=== PATIENT | male | born 1980 | race Caucasian/White ===

== ENCOUNTER 2024-06-06 21:16 | Inpatient (IN) | payer OTHER, SELFPAY ==
[2024-06-06 21:20] VITALS: BP 135/72; PULSE 87; RESP 17; TEMP 36.9; O2SAT 97; BMI 18.2
--- NOTE | 2024-06-06 21:46 | PC.NURSE ---
Patient came in with suboxone script bottle with 30 films in bottle.
--- NOTE | 2024-06-06 22:14 | ED_ITS ---
HPI - Psych General Chief Complaint: Psychiatric Symptoms Stated Complaint: SI Time Seen by Provider: 06/06/24 21:30 Source: patient and EMS Mode of arrival: EMS Limitations: no limitations History of Present Illness HPI Narrative: Patient is a 44-year-old male who presents to the emergency department via EMS for evaluation. Admits to difficulty sleeping recently, depression, SI. States that in April 2024 he broke up with his girlfriend. He was living in [facility] he has since moved back to the local area. He has relapsed with cane uses a couple of days ago after 10 years of sobriety. He expresses suicidal ideations with a plan to overdose on cocaine. He expresses discussing that surrounding his father who committed suicide approximately 10 years ago and ?I think my moving suicide as well?. He states he has taken antidepressants in the past but they ?make me feel like a robot? and does not find them particularly helpful. He trialed a course of cephalexin October of 2023 without much improvement. Has a primary care doctor in [place] but not one locally. He follows with [facility] where he receives monthly dosing, this too is in [place], he advised them he would like to establish care with a therapist but he never received follow-up. Related Data Home Medications ?Medication ?Instructions ?Recorded ?Confirmed buprenorphine 8 mg-naloxone 2 mg 1 film buccal TID 06/06/24 06/06/24 sublingual film (Suboxone) Allergies Allergy/AdvReac Type Severity Reaction Status Date / Time No Known Allergies Allergy Verified 06/06/24 21:21 Review of Systems 2 Review of Systems: Yes all other systems are reviewed and are negative PMFSH Past Medical History Attestation statement: The following information was validated with the patient. Source: old records reviewed Social History Social History Smoked in Last 30 Days: Yes Use of substances other than those prescribed or required for medical reasons: Yes Substance Use Type: Crack/Cocaine Advance Directives: No Advance Directives Information Provided: No Do you have a plan to hurt others: No Plan Physical Exam 2 Vital Signs: Vital Signs: Last Vital Signs Temp 98.6 F 06/06/24 23:56 Pulse 85 06/06/24 23:56 Resp 17 06/06/24 23:56 BP 126/83 06/06/24 23:56 Pulse Ox 96 06/06/24 23:56 O2 Del Method Room Air 06/06/24 23:56 BMI result Body Mass Index 18.2 Appearance: Alert.?Oriented to person, place and time. No acute distress.?Normal affect. Eyes: Pupils equal, round and reactive to light.? ENT: Pharynx normal.?? Neck: Normal inspection.? Neck supple.?? CVS: Heart sounds normal. Normal heart rate and rhythm.? Pulses normal.?? Respiratory: No respiratory distress.? Lung sounds clear to auscultation bilaterally?? Abdomen: Soft and non-tender. Normoactive bowel sounds. ?? Skin: Skin warm and dry.? Normal skin color.? Extremities: No lower extremity edema.? Neuro: Moves all extremities spontaneously. Sensation intact bilaterally. CN II- XII intact. No focal neuro deficits. Ambulates with normal steady gait. Medical Decision Making Medical Decision Making MDM Narrative: Patient is a 44-year-old male with history of substance use disorder, depression presenting to the emergency department with insomnia depression and suicidal ideations with a plan to overdose on cocaine as per HPI. He is calm and cooperative with myself. He had a friend stopped by who drop off his Suboxone he expresses concern about him decompensating surrounding this break-up, worsening depression insomnia. He acknowledges that his depression is problematic for him, in his currently admitting SI. Will obtain serum labs for medical clearance and refer to care team for safe disposition planning and determination as to whether inpatient psychiatric level of care is warranted at this time Differential Diagnosis Differential Diagnoses: The differential diagnosis associated with the presentation includes (Narrative above) Admission/Observation Consideration of admission/observation: Escalation of care including admission/observation considered Patient is being observed in the Emergency Department for depression and anxiety. Observation time was started at 22:25 on 06/06/2024..?The patient is currently stable and non-toxic appearing. Observation is being initiated in the Emergency Department to allow time to help differentiate if the patient's depression and anxiety is due to Substance Induced Mood Disorder and Anxiety versus Major Depressive Disorder, Bipolar [place], Bipolar Depression, and Schizophrenia. The patient will receive frequent psychiatric assessments from the provider as well as from nursing staff. The patient will also be monitored for the need of PRN agitation medications such as Haldol, Ativan, and Benadryl. He has been evaluated by the care team and disposition plan has been put in place for inpatient level of care for Psychiatric Services, placed on a section 12 Lab Data 06/06/24 22:10 06/06/24 22:10 Labs: Lab Results 06/06/24 06/06/24 Range/Units 22:10 22:11 WBC 8.4 (4.8-10.8) X10*3/uL RBC 4.90 (4.60-5.80) X10*6/uL Hgb 14.4 (14.0-18.0) g/dl Hct 40.6 L (42.0-52.0) % MCV 82.9 (80.0-98.0) fL MCH 29.4 (27.0-33.0) pg MCHC 35.5 (31.0-36.0) g/dl RDW 12.9 (11.0-16.0) % Plt Count 208 (160-400) X10*3/uL MPV 11.3 (9.4-12.4) fL Immature Gran % (Auto) 0.2 (0.0-0.4) % Neut % (Auto) 51.5 (45-73) % Lymph % (Auto) 31.8 (20-40) % [place] % (Auto) 11.2 H (2-11) % Eos % (Auto) 4.6 H (0-4) % Baso % (Auto) 0.7 (0-2) % Lymph # (Auto) 2.7 (1.2-4.9) X10*3/uL [place] # (Auto) 0.9 (0.1-1.2) X10*3/uL Eos # (Auto) 0.4 (0.0-0.4) X10*3/uL Baso # (Auto) 0.1 (0.0-0.2) X10*3/uL Abs Immat Gran (auto) 0.02 (0.00-0.03) X10*3/uL Absolute Neuts (auto) 4.3 (2.0-8.3) x10*3/uL Absolute Nucleated RBC 0.000 (0.0-0.012) X10*3/uL Nucleated RBC % (auto) 0.0 (0.0-0.2) /100WBC Sodium 142 (135-145) mmol/L Potassium 3.6 (3.3-5.1) mmol/L Chloride 102 (96-108) mmol/L Carbon Dioxide 28 (22-29) mmol/L Anion Gap 16 (12-20) BUN 20 H (9-16) mg/dL Creatinine 0.84 (0.5-1.4) mg/dL Estim Creat Clear Calc 93.0 Estimated GFR > 60 Random Glucose 120 H (60-115) mg/dL Calcium 9.7 (8.4-10.2) mg/dL Magnesium 1.9 (1.6-2.6) mg/dL Total Bilirubin 0.3 (0.0-1.0) mg/dL AST 29 (5-37) U/L ALT 23 (0-40) U/L Alkaline Phosphatase 71 (39-117) U/L Total Protein 6.8 (6.5-8.0) g/dL Albumin 4.2 (3.5-5.0) g/dL Urine Color Dark Yellow Urine Appearance Clear Urine pH 6.0 (5.0-9.0) Ur Specific [place] >= 1.030 H (1.005-1.025) Urine Protein 30 (1+) H (Neg-Trace) mg/dL Urine Glucose (UA) Negative (Negative) mg/dL Urine Ketones Trace (Negative) mg/dL Urine Blood Negative (Negative) Urine Nitrite Negative (Negative) Ur Leukocyte Esterase Trace H (Negative) Urine RBC 0-2 (0-2) /HPF Urine WBC 0-5 (0-5) /HPF Ur Squamous Epith Cells 0-2 (0-2) /HPF Urine Bacteria None Seen (None Seen) Hyaline Casts 0-2 (0-2) /LPF Salicylates < 5.0 L (15-30) mg/dL Urine Opiates Screen Not Detected (Not Detect) Ur Buprenorphine Scrn Positive H (Not Detect) ng/mL Ur Oxycodone Screen Not Detected (Not Detect) ng/mL Urine Methadone Screen Not Detected (Not Detect) ng/mL Urine Fentanyl Screen Not Detected (Not Detect) Acetaminophen < 3 (<30) mcg/mL Ur Barbiturates Screen Not Detected (Not Detect) Ur Phencyclidine Scrn Not Detected (Not Detect) Ur Amphetamines Screen POSITIVE H (Not Detect) U Benzodiazepines Scrn Not Detected (Not Detect) Urine Cocaine Screen POSITIVE H (Not Detect) U Marijuana (THC) Screen POSITIVE H (Not Detect) Ethyl Alcohol < 10 mg/dL Discharge Plan Discharge Clinical Impression: Suicidal ideation, Depression Patient Disposition: Still a Patient Prescriptions: No Action buprenorphine-naloxone [Suboxone] 8-2 mg Film 1 film BUCCAL TID Patient Comments: Pt up to date prescription bottle brought in Interventions: [place]-Suicide Risk Severity Scale Last Done: 06/06/24 23:59 Print Language: Mexican
[2024-06-06 22:19] LABS: MANUAL DIFF FLAG NO
[2024-06-06 22:21] LABS: Basophils Absolute Auto 0.1 X10*3/uL (0.0-0.2); Basophils Percent Auto 0.7 % (0-2); Eosinophils Absolute Auto 0.4 X10*3/uL (0.0-0.4); Eosinophils Percent Auto 4.6 % (0-4); Hematocrit 40.6 % (42.0-52.0); Hemoglobin 14.4 g/dl (14.0-18.0); Imm Gran Abs Auto 0.02 X10*3/uL (0.00-0.03); Imm Gran Pct Auto 0.2 % (0.0-0.4); Lymphocytes Absolute Auto 2.7 X10*3/uL (1.2-4.9); Lymphocytes Percent Auto 31.8 % (20-40); Mean Corpuscular HGB Conc 35.5 g/dl (31.0-36.0); Mean Corpuscular Hemoglobin 29.4 pg (27.0-33.0); Mean Corpuscular Volume 82.9 fL (80.0-98.0); Mean Platelet Volume 11.3 fL (9.4-12.4); Monocytes Absolute Auto 0.9 X10*3/uL (0.1-1.2); Monocytes Percent Auto 11.2 % (2-11); Neutrophils Absolute Auto 4.3 x10*3/uL (2.0-8.3); Neutrophils Percent Auto 51.5 % (45-73); Platelet Count 208 X10*3/uL (160-400); Red Cell Distribution Width 12.9 % (11.0-16.0); White Blood Count 8.4 X10*3/uL (4.8-10.8)
[2024-06-06 22:24] LABS: Appearance Urine Clear; Color Urine Dark Yellow; Glucose Urine UA Negative (Negative); Leukocyte Esterase Urine Trace (Negative); Nitrite Urine Negative (Negative); Specific Gravity - Urine >= 1.030 (1.005-1.025); UMIC TRIGGER UACC YES; Urine Blood Negative (Negative); Urine Ketones Trace mg/dL (Negative); Urine Protein 30 (1+) mg/dL (Neg-Trace)
[2024-06-06 22:34] LABS: Ethanol < 10 mg/dL
[2024-06-06 22:35] LABS: Alanine Aminotransferase 23 U/L (0-40); Albumin Level 4.2 g/dL (3.5-5.0); Alkaline Phosphatase 71 U/L (39-117); Anion Gap 16 (12-20); Aspartate Amino Transferase 29 U/L (5-37); Bilirubin Total 0.3 mg/dL (0.0-1.0); Blood Urea Nitrogen 20 mg/dL (9-16); Calcium 9.7 mg/dL (8.4-10.2); Carbon Dioxide 28 mmol/L (22-29); Chloride 102 mmol/L (96-108); Estimated Glomerular Filt Rate > 60; Glucose Random 120 mg/dL (60-115); Magnesium 1.9 mg/dL (1.6-2.6); Potassium 3.6 mmol/L (3.3-5.1); Sodium 142 mmol/L (135-145); Total Protein 6.8 g/dL (6.5-8.0)
[2024-06-06 22:35] LABS: Acetaminophen LAB < 3 mcg/mL (<30); Salicylate < 5.0 mg/dL (15-30)
[2024-06-06 22:38] LABS: Amphetamine Screen Urine POSITIVE (Not Detect); Barbiturates, Urine Not Detected (Not Detect); Benzodiazepines Screen Urine Not Detected (Not Detect); Buprenorphine Scr Positive (Not Detect); Cannabinoid Screen Urine POSITIVE (Not Detect); Cocaine Screen Urine POSITIVE (Not Detect); Fentanyl, urine Not Detected (Not Detect); Methadone Screen, Urine Not Detected (Not Detect); Opiate Screen Urine Not Detected (Not Detect); Oxycodone Screen Urine Not Detected (Not Detect); Phencyclidine Screen Urine Not Detected (Not Detect)
[2024-06-06 22:46] LABS: Bacteria Urine None Seen (None Seen); Hyaline Casts Urine 0-2 /LPF (0-2); RBC Urine 0-2 /HPF (0-2); Squamous Epithelial Cell Urine 0-2 /HPF (0-2); WBC Urine 0-5 /HPF (0-5)
--- NOTE | 2024-06-06 23:39 | PC.NURSE ---
pt calm and cooperative at this time. Speaking with care team in [facility] at this time
[2024-06-06 23:56] VITALS: BP 126/83; PULSE 85; RESP 17; TEMP 37; O2SAT 96
--- NOTE | 2024-06-07 | ECG_ITS ---
Test Reason : CHECK PROLONG QT Blood Pressure : / mmHG Vent. Rate : 054 BPM Atrial Rate : 054 BPM P-R Int : 144 ms QRS Dur : 094 ms QT Int : 440 ms P-R-T Axes : 066 060 068 degrees QTc Int : 417 ms Sinus bradycardia Otherwise normal ECG No previous ECGs available Referred By: Generic ED Physician Electronically Signed By:DARION LARRY MD
--- NOTE | 2024-06-07 07:08 | PC.NURSE ---
Assumed care of patient at 0645. Patient is currently resting quietly in their bed. No signs of distress observed, breathing is even and unlabored.
--- NOTE | 2024-06-07 07:09 | PC.NURSE ---
Assumed care of patient at 0645. Patient is currently resting quietly in their bed. No signs of distress observed, breathing is even and unlabored.
[2024-06-07] MEDS: Buprenorphine/Naloxone 8/2 mg FILM 1 FILM BUCCAL ×2 (11:00→14:53)
[2024-06-07] MEDS: Nicotine 21 MG PATCH.TD24 TRANSDERMA (14:51)
[2024-06-07] MEDS: LORazepam 1 MG TABLET 2 MG PO (14:51)
[2024-06-07] MEDS: OLANZapine ODT 10 MG TAB.RAPDIS TRANSLINGU (14:51)
--- NOTE | 2024-06-07 15:44 | P.CNPS_ITS ---
History of Present Illness Date of Service: 06/07/2024 Chief Complaint: SI Reason for Consult: overdose Requesting physician: Erica Serra Discussed with referring provider: Yes Sources of Information: patient interviewed and chart reviewed HPI Narrative: pt self presented to Ed after suicide attempt by IV cocaine use. Pt says he had not slept in 4 days when he made suicide attempt; he says he meant to kill himself. He states he had been abstinent for 10 yrs prior to this. He reports many months of mood disorder, anger, depression, not sleeping. he reports typically sleeping only 2 hours a day; he had recent break up with Gf that he initiated due to his depression; says he was yelling all the time and losing his temer. DCF got involved because she has a 7 yo son. He reports depression symptoms with poor energy, weight; loss, poor concentration not thinking straight. pt reports the suicide attempt was impulsive. Past Psychiatric History: reports no Inpt psych but in and out of correction since 16 yo . most recnt was out of correction x 5 yrs , pt has been tried on prozac, wellbutrin, zoloft, effexor and he says never helped. Medical Evaluation Reviewed: Yes Diagnostics Vital Signs (24Hr): Vital Signs - 24 hr 06/06/24 21:20 06/06/24 23:56 Temperature 98.4 F 98.6 F Pulse Rate 87 85 Respiratory Rate 17 17 Blood Pressure 135/72 126/83 Pulse Oximetry 97 96 Oxygen Delivery Method Room Air Room Air BMI result Body Mass Index 18.2 Labs 06/06/24 22:10 06/06/24 22:10 Labs: Laboratory Results - last 48 hr 06/06/24 06/06/24 22:10 22:11 WBC 8.4 RBC 4.90 Hgb 14.4 Hct 40.6 L MCV 82.9 MCH 29.4 MCHC 35.5 RDW 12.9 Plt Count 208 MPV 11.3 Immature Gran % (Auto) 0.2 Neut % (Auto) 51.5 Lymph % (Auto) 31.8 [place] % (Auto) 11.2 H Eos % (Auto) 4.6 H Baso % (Auto) 0.7 Lymph # (Auto) 2.7 [place] # (Auto) 0.9 Eos # (Auto) 0.4 Baso # (Auto) 0.1 Abs Immat Gran (auto) 0.02 Absolute Neuts (auto) 4.3 Absolute Nucleated RBC 0.000 Nucleated RBC % (auto) 0.0 Sodium 142 Potassium 3.6 Chloride 102 Carbon Dioxide 28 Anion Gap 16 BUN 20 H Creatinine 0.84 Estim Creat Clear Calc 93.0 Estimated GFR > 60 Random Glucose 120 H Calcium 9.7 Magnesium 1.9 Total Bilirubin 0.3 AST 29 ALT 23 Alkaline Phosphatase 71 Total Protein 6.8 Albumin 4.2 Urine Color Dark Yellow Urine Appearance Clear Urine pH 6.0 Ur Specific [place] >= 1.030 H Urine Protein 30 (1+) H Urine Glucose (UA) Negative Urine Ketones Trace Urine Blood Negative Urine Nitrite Negative Ur Leukocyte Esterase Trace H Urine RBC 0-2 Urine WBC 0-5 Ur Squamous Epith Cells 0-2 Urine Bacteria None Seen Hyaline Casts 0-2 Salicylates < 5.0 L Urine Opiates Screen Not Detected Ur Buprenorphine Scrn Positive H Ur Oxycodone Screen Not Detected Urine Methadone Screen Not Detected Urine Fentanyl Screen Not Detected Acetaminophen < 3 Ur Barbiturates Screen Not Detected Ur Phencyclidine Scrn Not Detected Ur Amphetamines Screen POSITIVE H U Benzodiazepines Scrn Not Detected Urine Cocaine Screen POSITIVE H U Marijuana (THC) Screen POSITIVE H Ethyl Alcohol < 10 Mental Status Exam Mental Status Exam Narrative: thin, rocking, unshaven Patient Appearance: Disheveled and Unkempt Patient Orientation: Person, Place, Time and Situation Level of Consciousness: Awake Patient Behavior: Appropriate Mood Description: Anxious and Sad Affect Description: Anxious, Flat and Sad Patient Cognition Impaired: No Ability to Follow Directions: Fair Speech Pattern: Clear Memory Description: Intact Hallucinations: None Delusions: Not Present Thought Process: Rumination Thought Content: positive for Ola, positive for Perseveration and positive for Loose Associations Abnormal Motor Activity Signs and Symptoms: Restlessness Judgement: Poor Medications Medications Current Medications Buprenorphine/Naloxone (Buprenorphine/Naloxone 8/2 Mg Film) 1 film BUCCAL TID MEGAN Last Admin: 06/07/24 14:53 Dose: 1 film Allergies Allergies Allergy/AdvReac Type Severity Reaction Status Date / Time No Known Allergies Allergy Verified 06/06/24 21:21 Assessment & Plan Assessment & Plan (1) Depression: Qualifiers: Depression Type: major depressive disorder Active/Remission status: c urrently active Major depression episode severity: severe Psychotic features: without psychotic features Status: Acute Code(s): F32.A - Depression, unspecified (2) Suicidal ideation: Status: Acute Code(s): R45.851 - Suicidal ideations Plan rule out BIpolar disorder recommend inpatient for severe depression, severe sleep disruption and recent intentional impulsive suicide attempt. Pt agreeable to this plan If changes his mind recommend section 12 Total time managing care of this patient today ____ minutes.
[2024-06-07 20:45] VITALS: BP 107/60; PULSE 54; RESP 16; TEMP 36.8; O2SAT 98
[2024-06-08] MEDS: Buprenorphine/Naloxone 8/2 mg FILM 1 FILM BUCCAL ×4 (01:32→20:58)
--- NOTE | 2024-06-08 01:33 | PC.NURSE ---
Pt woke up asking when he would receive last dose of suboxone. Per previous RN pt was tami welchypalicia and was sleeping so he was not given last dose. T/w spoke with and verbal order ok to give dose at this time. Suboxone administered to patient.
[2024-06-08 12:50] VITALS: BP 117/76; PULSE 94; RESP 18; TEMP 36.8; O2SAT 95
[2024-06-08 13:30] VITALS: BMI 18.5
[2024-06-08] MEDS: Nicotine 21 MG PATCH.TD24 TRANSDERMA (14:47)
[2024-06-08] MEDS: hydrOXYzine HCL 25 MG TABLET PO (14:47)
[2024-06-08] MEDS: Nicotine Polacrilex Lozenge 4 MG LOZENGE BUCCAL (15:21)
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
[2024-06-08 19:50] VITALS: BP 131/77; PULSE 76; RESP 18; TEMP 36.3; O2SAT 99
[2024-06-09] MEDS: Buprenorphine/Naloxone 8/2 mg FILM 1 FILM BUCCAL ×3 (08:32→21:33)
[2024-06-09] MEDS: Nicotine 21 MG PATCH.TD24 TRANSDERMA (08:32)
[2024-06-09 09:10] VITALS: BP 117/69; PULSE 70; RESP 16; TEMP 36.4; O2SAT 99
[2024-06-09 09:12] LABS: Alanine Aminotransferase 26 U/L (0-40); Albumin Level 4.1 g/dL (3.5-5.0); Alkaline Phosphatase 71 U/L (39-117); Anion Gap 11 (12-20); Aspartate Amino Transferase 25 U/L (5-37); Bilirubin Total 0.2 mg/dL (0.0-1.0); Blood Urea Nitrogen 23 mg/dL (9-16); Calcium 9.6 mg/dL (8.4-10.2); Carbon Dioxide 27 mmol/L (22-29); Chloride 105 mmol/L (96-108); Cholesterol 155 mg/dL (<200); Creatinine Clr Calc Pharmacy 99.4; Estimated Glomerular Filt Rate > 60; Glucose Fasting 96 mg/dL (60-99); HDL Cholesterol 56 mg/dL (>40); LDL Cholesterol Calculated 69 mg/dL (<100); Magnesium 1.9 mg/dL (1.6-2.6); Potassium 4.5 mmol/L (3.3-5.1); Sodium 138 mmol/L (135-145); Total Protein 6.8 g/dL (6.5-8.0); Triglycerides 154 mg/dL (<150)
[2024-06-09 09:14] LABS: Estimated Average Glucose 108 mg/dL; Hemoglobin A1c % 5.4 % (<6.0)
[2024-06-09] MEDS: Fluticasone/Vilanterol 100/25 BLST.W.DEV 1 PUFF INHALE (09:16)
[2024-06-09 10:09] LABS: Free T4 (Free Thyroxine) 0.93 ng/dL (0.71-1.85); Thyroid Stimulating Hormone 0.48 uIU/mL (0.32-4.0)
[2024-06-09 10:20] LABS: Folate 4.8 ng/mL (> or = 4.0); Vitamin B12 300 pg/mL (200-900)
[2024-06-09] MEDS: Nicotine Polacrilex Lozenge 4 MG LOZENGE BUCCAL ×4 (12:16→21:45)
[2024-06-09] MEDS: Acetaminophen 325 MG TABLET 650 MG PO ×2 (12:17→18:30)
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
[2024-06-09 20:00] VITALS: BP 126/87; PULSE 79; RESP 16; TEMP 36.7; O2SAT 98
[2024-06-09] MEDS: hydrOXYzine HCL 25 MG TABLET PO (21:40)
[2024-06-09] MEDS: Divalproex Sodium ER 500 MG TAB.ER.24H PO (21:40)
[2024-06-10 08:00] VITALS: BP 113/70; PULSE 60; RESP 16; TEMP 36.8; O2SAT 99
[2024-06-10] MEDS: Buprenorphine/Naloxone 8/2 mg FILM 1 FILM BUCCAL ×3 (08:29→20:33)
[2024-06-10] MEDS: Fluticasone/Vilanterol 100/25 BLST.W.DEV 1 PUFF INHALE (08:29)
[2024-06-10] MEDS: Acetaminophen 325 MG TABLET 650 MG PO (09:00)
[2024-06-10] MEDS: Nicotine 21 MG PATCH.TD24 TRANSDERMA (09:01)
--- NOTE | 2024-06-10 10:13 | HO.PSYCHPN ---
Subjective Subjective Date of Service: 06/10/24 Reason For Visit: Depression, polysubstance use disorder Interim History: Discussed with team. Patient has been social and visible in the milieu. Appropriate. Says he is anxious and scattered. He says he has a history of ADHD from childhood. He is compliant with treatment. Says he is groggy and may be related to Depakote. Denies SI. Denies AVH. Review of Systems Review of Systems Yes all other systems are reviewed and are negative (denies) Mental Status Exam Mental Status Exam Narrative: thin, rocking, unshaven Patient Appearance: Fatigued and Appropriate Patient Orientation: Person, Place, Time and Situation Level of Consciousness: Alert Patient Behavior: Talkative and Good Eye Contact Mood Description: Depressed Affect Description: Flat Patient Cognition Impaired: No Ability to Follow Directions: Good Speech Pattern: Spontaneous Speech Memory Description: Intact Diagnostics Vital Signs (24Hr): Vital Signs - 24 hr 06/09/24 20:00 06/10/24 08:00 Temperature 98.0 F 98.2 F Pulse Rate 79 60 Respiratory Rate 16 16 Blood Pressure 126/87 113/70 Pulse Oximetry 98 99 Oxygen Delivery Method Room Air Room Air BMI result Body Mass Index 18.5 Labs 06/06/24 22:10 06/09/24 08:15 Labs: Laboratory Results - last 48 hr 06/09/24 08:15 Sodium 138 Potassium 4.5 D Chloride 105 Carbon Dioxide 27 Anion Gap 11 L BUN 23 H Creatinine 0.80 Estim Creat Clear Calc 99.4 Estimated GFR > 60 Fasting Glucose 96 Estimat Average Glucose 108 Hemoglobin A1c % 5.4 Calcium 9.6 Magnesium 1.9 Total Bilirubin 0.2 AST 25 ALT 26 Alkaline Phosphatase 71 Total Protein 6.8 Albumin 4.1 Triglycerides 154 H Cholesterol 155 LDL Cholesterol, Calc 69 HDL Cholesterol 56 Vitamin B12 300 Folate 4.8 TSH 0.48 Free T4 0.93 Medications Medications Current Medications Acetaminophen (Acetaminophen 325 Mg Tablet) 650 mg PO Q6H PRN PRN Reason: Headache/Pain Mild Scale (1-3) Last Admin: 06/10/24 09:00 Dose: 650 mg Al Hydroxide/Mg Hydroxide (Magnesium Hydrox/Alum Hydrox 30 Ml Oral.Susp) 30 ml PO Q6H PRN PRN Reason: Heartburn/Nausea Buprenorphine/Naloxone (Buprenorphine/Naloxone 8/2 Mg Film) 1 film BUCCAL TID [facility] Last Admin: 06/10/24 08:29 Dose: 1 film Divalproex Sodium (Divalproex Sodium Er 500 Mg Tab.Er.24h) 500 mg PO BEDTIME [facility] Last Admin: 06/09/24 21:40 Dose: 500 mg Fluticasone/Vilanterol (Fluticasone/Vilanterol 100/25 Blst.W.Dev) 1 puff INHALE RDAILY [facility] Last Admin: 06/10/24 08:29 Dose: 1 puff Hydroxyzine HCl (Hydroxyzine Hcl 25 Mg Tablet) 25 mg PO Q6H PRN PRN Reason: Anxiety Last Admin: 06/09/24 21:40 Dose: 25 mg Magnesium Hydroxide (Milk Of Magnesia 30 Ml Oral.Susp) 30 ml PO DAILY PRN PRN Reason: Constipation Nicotine (Nicotine 21 Mg Patch.Td24) 21 mg TRANSDERMA DAILY PRN PRN Reason: nicotine cravings Last Admin: 06/10/24 09:01 Dose: 21 mg Nicotine Polacrilex (Nicotine Polacrilex Lozenge 4 Mg Lozenge) 4 mg BUCCAL Q2H PRN PRN Reason: Nicotine Cravings Last Admin: 06/09/24 21:45 Dose: 4 mg Olanzapine (Olanzapine 5 Mg Tablet) 5 mg PO Q4H PRN PRN Reason: agitation Trazodone HCl (Trazodone Hcl 50 Mg Tablet) 50 mg PO BEDTIME MRX1 PRN PRN Reason: Insomnia Ziprasidone (Ziprasidone 20 Mg Capsule) 20 mg PO BID PRN PRN Reason: agitation Allergies Allergies Allergy/AdvReac Type Severity Reaction Status Date / Time No Known Allergies Allergy Verified 06/06/24 21:21 Assessment & Plan Assessment & Plan (1) Mood disorder due to known physiological condition, unspecified: Status: Acute Code(s): F06.30 - Mood disorder due to known physiological condition, unspecified (2) Cocaine use disorder: Status: Acute Code(s): F14.10 - Cocaine abuse, uncomplicated Plan Mood Disorder NOS, Cocaine Use Disorder. Plan: Admit, CV, 15 mintue checks Collateral contacts as needed Aftercare planning Depakote ER 500 mg HS Geodon 20 mg bid prn lability, agitation. 06/10: continue current management and treatment plan. Consider Depakote titration. Reason for continued inpatient stay Substantial Risk for: harm to self, inability to function and rapid decompensation Time Spent With Patient Time: Total time managing care of this patient today ____ minutes.
[2024-06-10] MEDS: Nicotine Polacrilex Lozenge 4 MG LOZENGE BUCCAL ×2 (11:10→20:33)
[2024-06-10 20:00] VITALS: BP 113/70; PULSE 60; RESP 14; TEMP 36.8; O2SAT 99
[2024-06-10] MEDS: hydrOXYzine HCL 25 MG TABLET PO (20:33)
[2024-06-10] MEDS: Divalproex Sodium ER 500 MG TAB.ER.24H PO (20:33)
[2024-06-10] MEDS: traZODone HCL 50 MG TABLET PO (20:33)
[2024-06-11 07:42] VITALS: BP 119/68; PULSE 72; RESP 16; TEMP 36.8; O2SAT 99
[2024-06-11 08:00] VITALS: BP 119/68; PULSE 72; RESP 16; TEMP 36.8; O2SAT 99
[2024-06-11] MEDS: Nicotine 21 MG PATCH.TD24 TRANSDERMA (08:33)
[2024-06-11] MEDS: Nicotine Polacrilex Lozenge 4 MG LOZENGE BUCCAL ×5 (08:33→23:05)
[2024-06-11] MEDS: Buprenorphine/Naloxone 8/2 mg FILM 1 FILM BUCCAL ×3 (08:33→21:06)
[2024-06-11] MEDS: Acetaminophen 325 MG TABLET 650 MG PO (08:59)
[2024-06-11] MEDS: Fluticasone/Vilanterol 100/25 BLST.W.DEV 1 PUFF INHALE (09:01)
--- NOTE | 2024-06-11 10:24 | HO.PSYCHPN ---
Subjective Subjective Date of Service: 06/11/24 Reason For Visit: Depression, polysubstance use disorder Interim History: Discussed with team. Patient has been social and visible in the milieu. Appropriate. Says he is better today because I received some good news from home. and he spoke to his GF. He is compliant with treatment. Tolerating medications well. Denies SI. Denies AVH. Review of Systems Review of Systems Yes all other systems are reviewed and are negative (denies) Mental Status Exam Mental Status Exam Narrative: thin, rocking, unshaven Patient Appearance: Fatigued and Appropriate Patient Orientation: Person, Place, Time and Situation Level of Consciousness: Alert Patient Behavior: Talkative and Good Eye Contact Mood Description: Depressed Affect Description: Flat Patient Cognition Impaired: No Ability to Follow Directions: Good Speech Pattern: Spontaneous Speech Memory Description: Intact Diagnostics Vital Signs (24Hr): Vital Signs - 24 hr 06/10/24 20:00 06/11/24 07:42 06/11/24 08:00 Temperature 98.2 F 98.2 F 98.2 F Pulse Rate 60 72 72 Respiratory Rate 14 16 16 Blood Pressure 113/70 119/68 119/68 Pulse Oximetry 99 99 99 Oxygen Delivery Method Room Air Room Air Room Air BMI result Body Mass Index 18.5 Labs 06/06/24 22:10 06/09/24 08:15 Medications Medications Current Medications Acetaminophen (Acetaminophen 325 Mg Tablet) 650 mg PO Q6H PRN PRN Reason: Headache/Pain Mild Scale (1-3) Last Admin: 06/11/24 08:59 Dose: 650 mg Al Hydroxide/Mg Hydroxide (Magnesium Hydrox/Alum Hydrox 30 Ml Oral.Susp) 30 ml PO Q6H PRN PRN Reason: Heartburn/Nausea Buprenorphine/Naloxone (Buprenorphine/Naloxone 8/2 Mg Film) 1 film BUCCAL TID [facility] Last Admin: 06/11/24 08:33 Dose: 1 film Divalproex Sodium (Divalproex Sodium Er 500 Mg Tab.Er.24h) 500 mg PO BEDTIME [facility] Last Admin: 06/10/24 20:33 Dose: 500 mg Fluticasone/Vilanterol (Fluticasone/Vilanterol 100/25 Blst.W.Dev) 1 puff INHALE RDAILY [facility] Last Admin: 06/11/24 09:01 Dose: 1 puff Hydroxyzine HCl (Hydroxyzine Hcl 25 Mg Tablet) 25 mg PO Q6H PRN PRN Reason: Anxiety Last Admin: 06/10/24 20:33 Dose: 25 mg Magnesium Hydroxide (Milk Of Magnesia 30 Ml Oral.Susp) 30 ml PO DAILY PRN PRN Reason: Constipation Nicotine (Nicotine 21 Mg Patch.Td24) 21 mg TRANSDERMA DAILY PRN PRN Reason: nicotine cravings Last Admin: 06/11/24 08:33 Dose: 21 mg Nicotine Polacrilex (Nicotine Polacrilex Lozenge 4 Mg Lozenge) 4 mg BUCCAL Q2H PRN PRN Reason: Nicotine Cravings Last Admin: 06/11/24 08:33 Dose: 4 mg Olanzapine (Olanzapine 5 Mg Tablet) 5 mg PO Q4H PRN PRN Reason: agitation Trazodone HCl (Trazodone Hcl 50 Mg Tablet) 50 mg PO BEDTIME MRX1 PRN PRN Reason: Insomnia Last Admin: 06/10/24 20:33 Dose: 50 mg Ziprasidone (Ziprasidone 20 Mg Capsule) 20 mg PO BID PRN PRN Reason: agitation Allergies Allergies Allergy/AdvReac Type Severity Reaction Status Date / Time No Known Allergies Allergy Verified 06/06/24 21:21 Assessment & Plan Assessment & Plan (1) Mood disorder due to known physiological condition, unspecified: Status: Acute Code(s): F06.30 - Mood disorder due to known physiological condition, unspecified (2) Cocaine use disorder: Status: Acute Code(s): F14.10 - Cocaine abuse, uncomplicated Plan Mood Disorder NOS, Cocaine Use Disorder. Plan: Admit, CV, 15 mintue checks Collateral contacts as needed Aftercare planning Depakote ER 500 mg HS Geodon 20 mg bid prn lability, agitation. 06/10: continue current management and treatment plan. Consider Depakote titration. 06/11: continue current management and treatment plan. Reason for continued inpatient stay Substantial Risk for: harm to self, inability to function and rapid decompensation Time Spent With Patient Time: Total time managing care of this patient today ____ minutes.
[2024-06-11] MEDS: hydrOXYzine HCL 25 MG TABLET PO ×2 (14:08→23:05)
[2024-06-11 20:00] VITALS: BP 120/62; PULSE 86; RESP 16; TEMP 36.7; O2SAT 99
[2024-06-11] MEDS: Divalproex Sodium ER 500 MG TAB.ER.24H PO (21:46)
[2024-06-12] MEDS: traZODone HCL 50 MG TABLET PO ×2 (02:15→22:18)
[2024-06-12 08:00] VITALS: BP 125/78; PULSE 62; RESP 16; TEMP 36.7; O2SAT 98
[2024-06-12] MEDS: Buprenorphine/Naloxone 8/2 mg FILM 1 FILM BUCCAL ×3 (08:35→21:21)
[2024-06-12] MEDS: Acetaminophen 325 MG TABLET 650 MG PO ×2 (08:35→17:04)
[2024-06-12] MEDS: Fluticasone/Vilanterol 100/25 BLST.W.DEV 1 PUFF INHALE (08:35)
[2024-06-12] MEDS: Nicotine 21 MG PATCH.TD24 TRANSDERMA (08:36)
[2024-06-12] MEDS: Nicotine Polacrilex Lozenge 4 MG LOZENGE BUCCAL ×4 (09:30→22:21)
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
[2024-06-12 20:00] VITALS: BP 163/92; PULSE 72; RESP 16; TEMP 36.8; O2SAT 98
[2024-06-12] MEDS: hydrOXYzine HCL 25 MG TABLET PO (22:18)
[2024-06-12] MEDS: Divalproex Sodium ER 500 MG TAB.ER.24H PO (22:18)
[2024-06-13 08:00] VITALS: BP 129/60; PULSE 76; RESP 16; TEMP 36.4; O2SAT 99
[2024-06-13] MEDS: Fluticasone/Vilanterol 100/25 BLST.W.DEV 1 PUFF INHALE (08:23)
[2024-06-13] MEDS: Nicotine 21 MG PATCH.TD24 TRANSDERMA (08:23)
[2024-06-13] MEDS: Dextroamphetamine/Amphetamine XR 10 MG CAP.ER.24H PO (08:23)
[2024-06-13] MEDS: Buprenorphine/Naloxone 8/2 mg FILM 1 FILM BUCCAL ×3 (09:22→21:05)
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
[2024-06-13] MEDS: Nicotine Polacrilex Lozenge 4 MG LOZENGE BUCCAL ×6 (09:43→22:34)
[2024-06-13 19:45] VITALS: BP 132/89; PULSE 93; RESP 17; TEMP 36.8; O2SAT 98
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
[2024-06-13] MEDS: Divalproex Sodium ER 500 MG TAB.ER.24H PO (22:34)
[2024-06-13] MEDS: traZODone HCL 50 MG TABLET PO (22:34)
[2024-06-13] MEDS: hydrOXYzine HCL 25 MG TABLET PO (22:34)
[2024-06-13 22:35] VITALS: BP 130/89; PULSE 93
[2024-06-13] MEDS: Propranolol HCL 10 MG TABLET PO (22:35)
[2024-06-14 08:00] VITALS: BP 117/56; PULSE 67; RESP 14; TEMP 36.3; O2SAT 99
[2024-06-14] MEDS: Buprenorphine/Naloxone 8/2 mg FILM 1 FILM BUCCAL (08:23)
[2024-06-14] MEDS: Dextroamphetamine/Amphetamine XR 10 MG CAP.ER.24H PO (08:23)
[2024-06-14] MEDS: Naloxone HCl Nasal TAKE HOME 4 MG SPRAY 8 MG NOSTRILALT (08:24)
[2024-06-14] MEDS: Acetaminophen 325 MG TABLET 650 MG PO (08:39)
[2024-06-14] MEDS: Nicotine 21 MG PATCH.TD24 TRANSDERMA (08:40)
[2024-06-14] MEDS: Nicotine Polacrilex Lozenge 4 MG LOZENGE BUCCAL (08:40)
[2024-06-14] MEDS: Fluticasone/Vilanterol 100/25 BLST.W.DEV 1 PUFF INHALE (09:15)
== END 2024-06-14 11:15 | disposition home or self-care (01) | DRG 751 ==
LOC: HO.ED 06-07 00:23 → HO.PM5 06-08 12:14
PROVIDERS: Admitting Provider Clinical Nurse Specialist Psychiatric/Mental Health, Adult; Emergency Provider Internal Medicine; Visit Provider Psychiatry & Neurology Psychiatry
DX: F33.2 Major depressive disorder, recurrent severe without psychotic features (principal); R45.851 Suicidal ideations; F06.30 Mood disorder due to known physiological condition, unspecified; F11.20 Opioid dependence, uncomplicated; F14.10 Cocaine abuse, uncomplicated; F17.210 Nicotine dependence, cigarettes, uncomplicated; Z71.6 Tobacco abuse counseling; Z79.899 Other long term (current) drug therapy
CPT/HCPCS: 36415; 80053; 80061; 80143; 80179; 80307; 81001; 82607; 82746; 83036; 83735; 84439; 84443; 85025; 93005; 99285; S9485

== ENCOUNTER → 2024-06-06 21:55 | Outpatient (BNV) | payer OTHER, SELFPAY | PROVIDERS: Emergency Provider Internal Medicine; Visit Provider Clinical Nurse Specialist Psychiatric/Mental Health | DX: F32.A Depression, unspecified (principal); R45.851 Suicidal ideations | CPT/HCPCS: 90792; 99222; 99231; 99232; 99238 ==

== ENCOUNTER → 2024-06-07 13:38 | Outpatient (BNV) | payer OTHER, SELFPAY | PROVIDERS: Emergency Provider Internal Medicine; Visit Provider Internal Medicine Cardiovascular Disease | DX: R00.1 Bradycardia, unspecified (principal) | CPT/HCPCS: 93010 ==

== ENCOUNTER 2024-08-24 09:53 | Emergency (ER) | payer OTHER, SELFPAY ==
--- NOTE | ~2024-08-24 | XR_ITS ---
EXAMINATION: XR CHEST CLINICAL INFORMATION: Cough COMPARISON: None available. TECHNIQUE: 2 views of the chest were obtained. FINDINGS: Bilateral pulmonary reticular pattern. Hyperinflated lungs. No consolidation, pleural effusion or pneumothorax. Arty mediastinal silhouette is normal in size. Osseous structures are intact. S-shaped curvature of the cervical thoracic spine. XR/XR chest 2V IMPRESSION: No acute airspace disease. Consider chronic interstitial lung disease. Electronically signed by: Bhanu Bell MD 08/24/2024 10:55 AM EDT
--- NOTE | ~2024-08-24 | CT_ITS ---
EXAMINATION: CT ANGIOGRAM CHEST CLINICAL INFORMATION: Chest pain, dyspnea, elevated d-dimer. COMPARISON: Chest radiograph performed on the same date TECHNIQUE: Prior to contrast administration, noncontrast localization images were obtained. Subsequently, multidetector volumetric imaging was performed from the thoracic inlet to below the diaphragms following the administration of 65 mL Omnipaque 350 intravenous contrast. No contrast reaction reported Sagittal, coronal, and MIP oblique sagittal reformatted images were obtained on the CT workstation, uploaded to PACS, and reviewed. This CT examination was performed using dose optimization techniques as appropriate, variously including the following: *Automated exposure control *Adjustment of mA and/or kV according to patient size (this includes techniques or standardized protocols for targeted exams where dose is matched to indication/reason for exam; i.e. extremities or head) *Use of iterative reconstruction technique Total exam dose-length product : 228 mGy-cm FINDINGS: QUALITY OF STUDY/CONTRAST BOLUS: Satisfactory. PULMONARY ARTERIES: No central or segmental pulmonary emboli. THORACIC AORTA: No aneurysm. LUNG: Central airways are patent. Bilateral bronchial wall thickening with scattered areas of mucus plugging. Extensive bilateral tree-in-bud opacities. Geographic regions of groundglass attenuation within the upper lobes, right greater than left. Mild biapical pleural parenchymal scarring. Mild emphysematous changes in the lung apices. PLEURA: No pleural effusion or pneumothorax. CORONARY ARTERY CALCIFICATION: None visualized on this study. MEDIASTINUM: Normal heart size. No pericardial effusion. The thoracic aorta is nonaneurysmal. No evidence of septal bowing or right heart strain. Few mildly enlarged mediastinal lymph nodes for instance a left lower paratracheal measures 1.3 cm in short axis, 7:214. A subcarinal lymph node measures 1.7 cm in short axis, 7:268 CHEST WALL/AXILLA: No axillary or internal mammary lymphadenopathy. OSSEOUS STRUCTURES: No acute or suspicious osseous abnormality. UPPER ABDOMEN: Unremarkable. No reflux of contrast into the hepatic veins to suggest elevated right heart pressures. CT/CT angio chest PE protocol IMPRESSION: 1. No central or segmental pulmonary emboli. 2. Bilateral bronchial wall thickening with scattered areas of mucus plugging. Extensive bilateral tree-in-bud opacities. Overall findings may be secondary to infectious or inflammatory bronchiolitis. 3. Geographic regions of groundglass attenuation within the upper lobes, right greater than left may also be infectious or inflammatory in etiology. 4. Few mildly enlarged mediastinal lymph nodes which is likely reactive. 5. Mild emphysematous changes. VTE: Negative Electronically signed by: Lucius Krishna MD 08/24/2024 01:44 PM EDT
[2024-08-24 10:05] VITALS: BP 113/77; PULSE 105; RESP 22; TEMP 36.9; O2SAT 93; BMI 18.4
--- NOTE | 2024-08-24 10:33 | ED.GENADULT ---
HPI - General Adult General Chief complaint: General Medical Stated complaint: SOB Time Seen by Provider: 08/24/24 10:29 Source: patient and old records reviewed Mode of arrival: ambulatory Limitations: no limitations History of Present Illness ED Provider: SHO BURTON narrative: 44 yo male with PMH of emphysema uses symbicort at home but no rescue nebs, opiate use disorder notes he was exposed to COVID 2 weeks ago but for the past several days has had chest congestion, cough, dyspnea. He also notes Wednesday he started to have n/v/d. He has no abdominal pain, fevers. He feels he cannot catch a deep breath. He still smokes at this time. 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 He notes his vomited has not been dark or bloody but he did note his stool MD complaint: URI, chest tightness, dyspnea, cough Onset (ago): day(s) () Location: chest Radiation: non-radiation Severity: moderate Quality: other (tight) Relieving factors: none Exacerbating factors: other (coughing, exertion) Associated symptoms: cough, loss of appetite, malaise, nausea/vomiting and shortness of breath Treatments prior to arrival: none Related Data Home Medications ?Medication ?Instructions ?Recorded ?Confirmed buprenorphine 8 mg-naloxone 2 mg 1 film buccal TID 06/06/24 06/06/24 sublingual film (Suboxone) Previous Rx's ?Medication ?Instructions ?Recorded divalproex 500 mg tablet,extended 500 mg PO BEDTIME 30 days #30 tabs 06/13/24 release 24 hr fluticasone furoate 100 1 inh inhalation RDAILY 30 days 06/13/24 mcg-vilanterol 25 mcg/dose #60 ea inhalation powder (Breo Ellipta) hydroxyzine HCl 25 mg tablet 25 mg PO Q6H PRN Anxiety 30 days 06/13/24 #60 tabs nicotine (polacrilex) 4 mg buccal 4 mg buccal Q2H PRN Nicotine 06/13/24 lozenge Cravings 30 days #108 ea nicotine 21 mg/24 hr daily 21 mg transdermal DAILY PRN 06/13/24 transdermal patch nicotine cravings 28 days #28 ea propranolol 10 mg tablet 10 mg PO TID PRN anxiety 30 days 06/13/24 #60 tabs trazodone 50 mg tablet 50 mg PO BEDTIME PRN Insomnia 30 06/13/24 days #30 tabs dextroamphetamine-amphetamine ER 10 mg PO DAILY 30 days #30 caps 06/16/24 10 mg 24hr capsule,extend release (Adderall XR) albuterol sulfate 90 mcg/actuation 2 puff inhalation QID PRN 08/24/24 aerosol inhaler shortness of breath or wheezing #6.7 grams amoxicillin 875 mg-potassium 1 tab PO BID #14 tabs 08/24/24 clavulanate 125 mg tablet azithromycin 250 mg tablet See Rx Instructions PO .COMPLEX #6 08/24/24 tabs famotidine 20 mg tablet (Pepcid) 20 mg PO DAILY abdominal 08/24/24 discomfort #30 tabs ondansetron 4 mg disintegrating 4 mg PO Q8H PRN nausea and 08/24/24 tablet vomiting #20 tabs prednisone 20 mg tablet 40 mg (2 x 20 mg) PO DAILY 5 days 08/24/24 #10 tabs Allergies Allergy/AdvReac Type Severity Reaction Status Date / Time No Known Allergies Allergy Verified 08/24/24 10:09 Review of Systems Review of Systems: Constitutional : No Fever, pos Chills ENT/Mouth : No Hoarseness, No sore throat, No Rhinorrhea Eyes: No Redness, No Discharge, No Vision Changes Cardiovascular : No Chest Pain, positive SOB, positive Dyspnea on Exertion, No Edema Respiratory : positive Cough, pos Sputum, positive Wheezing, Gastrointestinal : pos Nausea, pos Vomiting, No Diarrhea, No abdominal Pain, pos melena Genitourinary : No Dysuria, No Hematuria Musculoskeletal : No joint pain, No Myalgias Skin : No rash Neuro : No Weakness, No Numbness, No Headache Psych : No anxiety, depression Heme/Lymph: No Bruising, No Bleeding Endocrine : No Polyuria, No Polydipsia All other systems reviewed and are negative [facility] Past Medical History Attestation statement: The following information was validated with the patient. Source: old records reviewed Medical History (Updated 08/24/24 @ 14:02 by Amy Dumas DO) Emphysema lung Cocaine use disorder Social History Social History Household Members: Friend(s) Do you presently have visiting nurse or other home services: No Patient Tobacco Use Status: Current everyday Tobacco user Tobacco use type: Cigarette Cigarette Packs Per Day: 1 Cigarettes Per Day: 20.0 Smoked in Last 30 Days: Yes Use of substances other than those prescribed or required for medical reasons: Yes Substance Use Type: Marijuana Advance Directives: No Advance Directives Information Provided: Yes Do you have a plan to hurt others: No Plan service: No Sexual orientation: Straight/Heterosexual Physical Exam ED Vital Signs: Vital Signs - 24 hr 08/24/24 10:05 08/24/24 10:41 08/24/24 11:08 Temperature 98.4 F Pulse Rate 105 H 98 Pulse Rate [Left Apical] 105 H Respiratory Rate 22 H 18 Blood Pressure 113/77 Pulse Oximetry 93 Oxygen Delivery Method Room Air BMI result Body Mass Index 18.4 Appearance: Alert. Oriented X3. No acute distress. Eyes: Pupils equal, round and reactive to light. ENT: Pharynx normal. Neck: Normal inspection. Neck supple. CVS: tachycardic heart rate and rhythm. Pulses normal. Respiratory: No respiratory distress. Breath sounds diminished with diffuse mild exp wheezes Abdomen: Soft and non-tender. Skin: Skin warm and dry. Normal skin color. Normal skin turgor. Extremities: No lower extremity edema. No calf ttp Neuro: Oriented X 3. No motor deficit. No sensory deficit. Medications Administered Discontinued Medications Generic Name Dose Route Start Last Admin Trade Name Freq PRN Reason Stop Dose Admin Ceftriaxone Sodium 1 gm 08/24/24 11:51 08/24/24 12:03 Ceftriaxone Sodium 1 Gm Vial IVPUSH 08/24/24 11:52 1 gm ONCE ONE Administration Albuterol Sulfate 2.5 mg/ 0 mg 08/24/24 10:54 08/24/24 11:08 Albuterol/Ipratropium 3 ml INHALE 08/24/24 10:55 1 dose ONCE ONE Administration Iohexol 100 ml 08/24/24 12:27 08/24/24 12:28 Iohexol 350 Mg/Ml 100 Ml Infus..Btl IV 08/24/24 12:28 65 ml ONCE ONE Administration Methylprednisolone Sodium Succinate 60 mg 08/24/24 10:43 08/24/24 11:13 Methylprednisolone Sod Succ 125 Mg/2 Ml Vial IVPUSH 08/24/24 10:44 60 mg ONCE ONE Administration Ondansetron HCl 4 mg 08/24/24 10:49 08/24/24 11:13 Ondansetron Hcl 4 Mg/2 Ml Vial IVPUSH 08/24/24 10:50 4 mg ONCE ONE Administration Pantoprazole Sodium 40 mg 08/24/24 10:49 08/24/24 11:13 Pantoprazole Sodium 40 Mg/10 Ml Vial IVPUSH 08/24/24 10:50 40 mg ONCE ONE Administration Medical Decision Making Medical Decision Making MDM Narrative: 44 yo male with PMH of emphysema uses symbicort at home but no rescue nebs, opiate use disorder here with COVID exposure 2 weeks ago now with several days of dyspnea, cough, n/v x 2 days and reports some black stools he will need labs, CXR, H/H, ddimer if positive CTA to be ordered. Possible emphysema, pneumonia, VTE, COVID. As for black stools no hx of Fe/pepto bismol, GIB and if H/H stable will start on H2 or PPI with referral to PCP as outpatient. given WBC count possible infection suspected 1152am IV ceftriaxone ordered Differential Diagnosis Differential Diagnoses: The differential diagnosis associated with the presentation includes emphysema, pneumonia, VTE, COVID Admission/Observation Consideration of admission/observation: Escalation of care including admission/observation considered wbc count but neg lactic acid no hypoxia feels much better stable for outpatient treatment Lab Data [facility] Lab Attestation statement: I reviewed the patient's lab results. 08/24/24 10:28 08/24/24 10:28 Labs: Lab Results 08/24/24 08/24/24 Range/Units 10: 11:07 WBC 15.8 H (4.8-10.8) X10*3/uL RBC 5.72 (4.60-5.80) X10*6/uL Hgb 16.1 (14.0-18.0) g/dl Hct 46.0 (42.0-52.0) % MCV 80.4 (80.0-98.0) fL MCH 28.1 (27.0-33.0) pg MCHC 35.0 (31.0-36.0) g/dl RDW 12.6 (11.0-16.0) % Plt Count 391 D (160-400) X10*3/uL MPV 10.3 (9.4-12.4) fL Immature Gran % (Auto) 0.4 (0.0-0.4) % Neut % (Auto) 75.1 H (45-73) % Lymph % (Auto) 9.8 L (20-40) % [place] % (Auto) 13.8 H (2-11) % Eos % (Auto) 0.5 (0-4) % Baso % (Auto) 0.4 (0-2) % Lymph # (Auto) 1.6 (1.2-4.9) X10*3/uL [place] # (Auto) 2.2 H (0.1-1.2) X10*3/uL Eos # (Auto) 0.1 (0.0-0.4) X10*3/uL Baso # (Auto) 0.1 (0.0-0.2) X10*3/uL Abs Immat Gran (auto) 0.06 H (0.00-0.03) X10*3/uL Absolute Neuts (auto) 11.8 H (2.0-8.3) x10*3/uL Absolute Nucleated RBC 0.000 (0.0-0.012) X10*3/uL Nucleated RBC % (auto) 0.0 (0.0-0.2) /100WBC Smear Tech's Comments VERIFIED D-Dimer High Sensitivty 267 NG/ML Sodium 135 (135-145) mmol/L Potassium 4.6 (3.3-5.1) mmol/L Chloride 100 (96-108) mmol/L Carbon Dioxide 24 (22-29) mmol/L Anion Gap 16 (12-20) BUN 20 H (9-16) mg/dL Creatinine 0.70 (0.5-1.4) mg/dL Estim Creat Clear Calc 112.7 Estimated GFR > 60 Random Glucose 120 H (60-115) mg/dL Lactic Acid 1.2 (0.5-2.0) mmol/L Calcium 10.3 H D (8.4-10.2) mg/dL Total Bilirubin 0.4 (0.0-1.0) mg/dL Direct Bilirubin 0.2 (0.0-0.5) mg/dL AST 26 (5-37) U/L ALT 16 (0-40) U/L Alkaline Phosphatase 108 (39-117) U/L Troponin I High Sens < 2.7 (<3.5-35.0) ng/L Total Protein 8.3 H (6.5-8.0) g/dL Albumin 4.3 (3.5-5.0) g/dL Lipase 5 L (8-78) U/L Procalcitonin 0.09 ng/mL Influenza Type A (PCR) NEGATIVE (Negative) Influenza Type B (PCR) NEGATIVE (Negative) RSV RNA Qual (PCR) NEGATIVE (Negative) SARS-CoV-2 RNA (RT-PCR) NEGATIVE (Negative) Independent Interpretation I performed an independent interpretation of an: EKG, Plain X-Ray (no consolidation) and CT Scan Interpretation: Rate: 91 Rhythm: NSR [place]: normal Normal P waves. Normal CHARU. Normal QRS complex. Poor R wave progression ST T wave : no KISHAN, inverted t waves V1 and V2 qTC: 423 prior studies: no KISHAN The study has been interpreted contemporaneously by me. . Radiology Impression Discussion of test interpretation with radiology: I have reviewed the radiologist's reading. External Record Review External record reviewed: Outpatient record Prescription Management I considered prescription management with: Antibiotic and Other Discharge Plan Discharge Clinical Impression: Bronchitis Patient Disposition: Home, Self-Care Instructions: Acute Bronchitis (ED) Additional Instructions: return for any worsening symptoms such as difficulty breathing, chest pain, fevers, no improvement negative for COVID, flu, rsv as for black stools - return for any worsening symptoms avoid motrin tylenol is okay will start on pepcid follow up with GI doctor for outpatient colonoscopy CT/CT angio chest PE protocol IMPRESSION: 1. No central or segmental pulmonary emboli. 2. Bilateral bronchial wall thickening with scattered areas of mucus plugging. Extensive bilateral tree-in-bud opacities. Overall findings may be secondary to infectious or inflammatory bronchiolitis. 3. Geographic regions of groundglass attenuation within the upper lobes, right greater than left may also be infectious or inflammatory in etiology. 4. Few mildly enlarged mediastinal lymph nodes which is likely reactive. 5. Mild emphysematous changes Prescriptions: New azithromycin 250 mg tablet See Rx Instructions .ROUTE .COMPLEX Qty: 6 0RF Rx Instructions: For 250 mg dose pack: take 500 mg today (day 1), then 250 mg for 4 days (days 2-5) prednisone 20 mg tablet 40 mg PO DAILY 5 Days Qty: 10 0RF famotidine [Pepcid] 20 mg tablet 20 mg PO DAILY Qty: 30 0RF albuterol sulfate 90 mcg/actuation HFA aerosol inhaler 2 puff inhalation QID PRN (Reason: shortness of breath or wheezing) Qty: 6.7 0RF ondansetron 4 mg tablet,disintegrating 4 mg PO Q8H PRN (Reason: nausea and vomiting) Qty: 20 0RF amoxicillin-pot clavulanate 875-125 mg tablet 1 tab PO BID Qty: 14 0RF No Action buprenorphine-naloxone [Suboxone] 8-2 mg Film 1 film BUCCAL TID Patient Comments: Pt up to date prescription bottle brought in nicotine 21 mg/24 hr Patch 24 Hour 21 mg transdermal DAILY PRN (Reason: nicotine cravings) 28 Days Qty: 28 1RF nicotine (polacrilex) 4 mg Lozenge 4 mg buccal Q2H PRN (Reason: Nicotine Cravings) 30 Days Qty: 108 1RF propranolol 10 mg Tablet 10 mg PO TID PRN (Reason: anxiety) 30 Days Qty: 60 1RF Protocol: Hold for SBP/HR < HOLD for SBP < : 90 HOLD for HR < : 60 divalproex 500 mg Tablet Extended Release 24 Hr 500 mg PO BEDTIME 30 Days Qty: 30 1RF hydroxyzine HCl 25 mg Tablet 25 mg PO Q6H PRN (Reason: Anxiety) 30 Days Qty: 60 1RF trazodone 50 mg Tablet 50 mg PO BEDTIME PRN (Reason: Insomnia) 30 Days Qty: 30 1RF fluticasone furoate-vilanterol [Breo Ellipta] 100-25 mcg/dose Blister With Device 1 inh inhalation RDAILY 30 Days Qty: 60 1RF dextroamphetamine-amphetamine [Adderall XR] 10 mg capsule,extended release 24hr 10 mg PO DAILY 30 Days Qty: 30 0RF Rx Instructions: Partial Fill upon patient request. Referrals: [facility] [Provider Group] Print Language: Occitan
[2024-08-24 10:37] LABS: Basophils Absolute Auto 0.1 X10*3/uL (0.0-0.2); Basophils Percent Auto 0.4 % (0-2); Eosinophils Absolute Auto 0.1 X10*3/uL (0.0-0.4); Eosinophils Percent Auto 0.5 % (0-4); Hemoglobin 16.1 g/dl (14.0-18.0); Imm Gran Abs Auto 0.06 X10*3/uL (0.00-0.03); Imm Gran Pct Auto 0.4 % (0.0-0.4); Lymphocytes Absolute Auto 1.6 X10*3/uL (1.2-4.9); Lymphocytes Percent Auto 9.8 % (20-40); MANUAL DIFF FLAG SCAN; Mean Corpuscular Hemoglobin 28.1 pg (27.0-33.0); Mean Corpuscular Volume 80.4 fL (80.0-98.0); Mean Platelet Volume 10.3 fL (9.4-12.4); Monocytes Absolute Auto 2.2 X10*3/uL (0.1-1.2); Monocytes Percent Auto 13.8 % (2-11); Neutrophils Absolute Auto 11.8 x10*3/uL (2.0-8.3); Neutrophils Percent Auto 75.1 % (45-73); Platelet Count 391 X10*3/uL (160-400); Red Blood Count 5.72 X10*6/uL (4.60-5.80); Red Cell Distribution Width 12.6 % (11.0-16.0); SCAN SMEAR FLAG 1; White Blood Count 15.8 X10*3/uL (4.8-10.8)
--- NOTE | 2024-08-24 10:37 | PC.NURSE ---
patient a&ox3, speaking full sentences, lungs have rhonchi throughout, productive cough, media monitor applied sinus tach on monitor, currently denying pain. pt states he does take suboxone has not used anything other than smoking marijuanna. labs previously drawn in triage, swab obtained, call kong within reach, will continue to monitor
[2024-08-24 10:41] VITALS: PULSE 105
[2024-08-24 10:52] LABS: Alanine Aminotransferase 16 U/L (0-40); Albumin Level 4.3 g/dL (3.5-5.0); Alkaline Phosphatase 108 U/L (39-117); Anion Gap 16 (12-20); Aspartate Amino Transferase 26 U/L (5-37); Bilirubin Direct 0.2 mg/dL (0.0-0.5); Bilirubin Total 0.4 mg/dL (0.0-1.0); Blood Urea Nitrogen 20 mg/dL (9-16); Calcium 10.3 mg/dL (8.4-10.2); Carbon Dioxide 24 mmol/L (22-29); Chloride 100 mmol/L (96-108); Creatinine Clr Calc Pharmacy 112.7; Estimated Glomerular Filt Rate > 60; Glucose Random 120 mg/dL (60-115); Lipase 5 U/L (8-78); Potassium 4.6 mmol/L (3.3-5.1); Sodium 135 mmol/L (135-145); Total Protein 8.3 g/dL (6.5-8.0)
[2024-08-24 10:54] LABS: SLIDE REVIEW VERIFIED
--- NOTE | 2024-08-24 10:54 | ECG_ITS ---
Test Reason : CHEST TIGHTNESS Blood Pressure : / mmHG Vent. Rate : 091 BPM Atrial Rate : 091 BPM P-R Int : 132 ms QRS Dur : 084 ms QT Int : 344 ms P-R-T Axes : 063 041 066 degrees QTc Int : 423 ms Normal sinus rhythm Minimal voltage criteria for LVH, may be normal variant ( Sokolow-Adames ) Septal infarct , age undetermined Abnormal ECG When compared with ECG of 07-JUN-2024 13:38, Vent. rate has increased BY 37 BPM T wave amplitude has decreased in Anterior leads Referred By: Amy Dumas Electronically Signed By:Nilton Baker
[2024-08-24 11:08] VITALS: PULSE 98; RESP 18; O2SAT 92
[2024-08-24] MEDS: Albuterol Sulfate 2.5 MG, Albuterol/Iprat 2.5/0.5MG 3 ML 3 ML INHALE (11:08)
[2024-08-24 11:09] LABS: Influenza A PCR NEGATIVE (Negative); Influenza B PCR NEGATIVE (Negative); Resp Syncy Virus RNA Qual PCR NEGATIVE (Negative); SARS COV2 PCR INHOUSE NEGATIVE (Negative)
[2024-08-24] MEDS: Pantoprazole Sodium 40 MG/10 ML VIAL IVPUSH (11:13)
[2024-08-24] MEDS: methylPREDNISolone Sod Succ 125 MG/2 ML VIAL 60 MG IVPUSH (11:13)
[2024-08-24] MEDS: ondansetron HCL 4 MG/2 ML VIAL IVPUSH (11:13)
--- NOTE | 2024-08-24 11:18 | PC.NURSE ---
iv inserted, additional labs drawn, pt medicated per order, tech to perform ekg.
[2024-08-24 11:22] LABS: D Dimer High Sensitivity 267 NG/ML
--- NOTE | 2024-08-24 11:23 | PC.NURSE ---
pt is difficult stick, multiple attempts by this nurse, additional staff and techs
[2024-08-24 11:26] LABS: Lactic Acid 1.2 mmol/L (0.5-2.0)
[2024-08-24 11:50] LABS: Troponin-I High Sensitivity < 2.7 ng/L (<3.5-35.0)
[2024-08-24 11:56] LABS: Procalcitonin 0.09 ng/mL
[2024-08-24] MEDS: cefTRIAXone sodium 1 GM VIAL IVPUSH (12:03)
--- NOTE | 2024-08-24 12:05 | PC.NURSE ---
pt a&ox3 nuclear monitoring technician intact, pt medicated per order, call kong within reach, will continue to monitor
[2024-08-24] MEDS: iohexoL 350 MG/ML 100 ML INFUS..BTL IV (12:28)
[2024-08-24 14:48] VITALS: BP 116/76; PULSE 98; RESP 18; TEMP 36.8; O2SAT 93
== END 2024-08-24 14:49 | disposition home or self-care (01) ==
PROVIDERS: Emergency Provider Emergency Medicine
DX: J40 Bronchitis, not specified as acute or chronic (principal); R06.02 Shortness of breath; R11.2 Nausea with vomiting, unspecified; R07.89 Other chest pain; R05.9 Cough, unspecified; F17.210 Nicotine dependence, cigarettes, uncomplicated; Z03.818 Encounter for observation for suspected exposure to other biological agents ruled out; Z79.899 Other long term (current) drug therapy
CPT/HCPCS: 0241U; 36415; 71046; 71275; 80048; 80076; 83605; 83690; 84145; 84484; 85025; 85379; 87040; 93005; 94640; 96374; 96375; 99284; J0696; J2405; J2470; J2919; Q9967

== ENCOUNTER → 2024-08-24 10:12 | Outpatient (BNV) | payer OTHER, SELFPAY | PROVIDERS: Emergency Provider Emergency Medicine; Visit Provider Radiology Diagnostic Radiology | DX: R05.9 Cough, unspecified (principal) | CPT/HCPCS: 71046 ==

== ENCOUNTER → 2024-08-24 10:54 | Outpatient (BNV) | payer OTHER, SELFPAY | PROVIDERS: Emergency Provider Emergency Medicine; Visit Provider Internal Medicine Cardiovascular Disease | DX: R07.89 Other chest pain (principal); R94.31 Abnormal electrocardiogram [ECG] [EKG] | CPT/HCPCS: 93010 ==